=== PATIENT | female | born 1965 | race Caucasian/White ===

== ENCOUNTER 2016-10-24 18:31 | Emergency (ER) | payer SELFPAY ==
[~2016-10-24] VITALS: Ht 165.1 cm; Wt 62.6 kg
[~2016-10-24 18:31] MED LIST: FERR325C PO; LORA10CA PO; MEDR10TA PO
[2016-10-24] MEDS ORDERED: TETANUS,DIPTH,PERTUSS P/F (BOOSTRIX) 0.5 ML VIAL IM ONE (18:45)
[2016-10-24] MEDS ORDERED: LIDOCAINE/EPI 1%-1:100,000 (XYLOCAINE) 20ML INJ ONE (18:45)
[2016-10-24] MEDS ORDERED: AUGMENTIN 875 MG TAB (AMOXICILLIN/CLAVULANATE) PO SCH (18:45)
[2016-10-24] MEDS ORDERED: AMOX-358 PO (18:49)
--- NOTE | 2016-10-24 18:49 | ED EENT ---
History of Present Illness General Chief Complaint: Laceration Stated Complaint: R UPPER LIP INJ Source: patient Exam Limitations: no limitations History of Present Illness Time seen by provider: 18:47 Initial Comments To ER with a laceration to the right upper lip from her dog that bit her earlier today after she got too close to it. The dog is vaccinated against rabies. The patient is not sure about her on tetanus vaccination status. Timing/Duration: abrupt Severity: mild Associated Symptoms: denies symptoms Allergies and Home Medications Allergies Coded Allergies: No Known Drug Allergies (Unverified , 09/17/14) Home Medications Amoxicillin/Potassium Clav 1 Each Tablet, 1 EACH PO BID, #8 Prescribed by: FAMILIA HUDSON on 10/24/16 1849 Ferrous Sulfate 325 ( 65 )Mg Capsule.sa, 325 ( PO DAILY, #90 Prescribed by: JAMIA BARRAZA on 09/18/14 1240 Loratadine 10 Mg Capsule, 10 MG PO DAILY, (Reported) Medroxyprogesterone Acetate 10 Mg Tablet, 10 MG PO DAILY PRN for mynor, #36 Prescribed by: JAMIA BARRAZA on 09/18/14 1240 Review of Systems Constitutional: see HPI Eyes: No Symptoms Reported Ears: No Symptoms Reported Nose: no symptoms reported Mouth: see HPI Throat: no symptoms reported Respiratory: no symptoms reported Cardiovascular: no symptoms reported Musculoskeletal: no symptoms reported Past Krmrfig-Oorovx-Zyatcg Hx Patient Social History Alcohol Use: Occasionally Uses Recreational Drug Use: No Smoking Status: Never a Smoker Recent Foreign Travel: No Contact w/Someone Who Travel: No Seasonal Allergies Seasonal Allergies: Yes Surgeries HX Surgeries: Yes (OVARIAN CYSTS) Surgeries: Section Respiratory Hx Respiratory Disorders: No Cardiovascular Hx Cardiac Disorders: No Neurological Hx Neurological Disorders: No Genitourinary Hx Genitourinary Disorders: No Gastrointestinal Hx Gastrointestinal Disorders: No Musculoskeletal Hx Musculoskeletal Disorders: No Endocrine Hx Endocrine Disorders: No HEENT HX ENT Disorders: No Cancer Hx Cancer: No Psychosocial Hx Psychiatric Problems: No Integumentary HX Skin/Integumentary Disorder: Yes Skin/Integumentary Disorders: Eczema Blood Transfusions Hx Blood Disorders: No Adverse Reaction to a Blood Tr: No Family Medical History Significant Family History: No Pertinent Family Hx Physical Exam Vital Signs Vital Sign - Last 12Hours 10/24/16 18:35 Temp 99.5 Pulse 115 Resp 18 B/P (MAP) 116/68 General Appearance: WD/WN, no apparent distress Eyes: bilateral eye EOMI, bilateral eye PERRL, bilateral eye normal inspection Ears: bilateral ear TM normal, bilateral ear auricle normal, bilateral ear canal normal Nose: normal inspection, No active bleeding Mouth/Throat: normal mouth inspection, other (there is a vertically oriented 1 cm laceration to the lateral aspect of the right upper lip that is not all the way through but it is down to the subcutaneous tissues and does cross the vermilion border.) Neck: non-tender, full range of motion Respiratory: no respiratory distress, no accessory muscle use Gastrointestinal: non tender, soft Neurologic/Psychiatric: alert, normal mood/affect, oriented x 3 Skin: normal color, warm/dry Laceration Repair : Wound Location: Face Wound Length (cm): 1 Wound's Depth, Shape: sub Q Wound Explored: clean Anesthesia: Lidocaine w/ Epi Suture Size: 5-0 Number of Sutures: 4 Progress 1911-anesthetized with 1ml of 1% lidocaine with epi then irrigate with 30ml of chlorhexidine and saline. No foreign bodies seen. Closed with 4 sutures size 5- 0 ethilon simple interrupted. Progress/Results/Core Measures Results/Orders My Orders Orders - FAMILIA HUDSON APRN Dipht,Pertuss(Acell),Tet Adult (Boostrix (10/24/16 18:45) Lidocaine/Epi 1% 1:100,000 (Xylocaine /E (10/24/16 18:45) Amoxicillin/Clavulanate Tablet (Augmenti (10/24/16 18:45) Medications Given in ED Current Medications Medications Dose Ordered Sig/Mynor Route Start Time Stop Time Status Last Admin Dose Admin Diphtheria/ Tetanus/Acell Pertussis 0.5 ml ONCE ONCE IM 10/24/16 18:45 10/24/16 18:46 DC 10/24/16 18:55 0.5 ML Lidocaine/ Epinephrine 1 ml ONCE ONCE INJ 10/24/16 18:45 10/24/16 18:46 DC 10/24/16 18:55 1 ML Vital Signs/I&O Vital Sign - Last 12Hours 10/24/16 18:35 Temp 99.5 Pulse 115 Resp 18 B/P (MAP) 116/68 Departure Impression Impression: Primary Impression: Facial laceration Disposition: 01 HOME, SELF-CARE Condition: Stable Departure-Patient Inst. Decision time for Depature: 18:48 Referrals: NO,LOCAL PHYSICIAN (PCP/Family) Primary Care Physician Patient Instructions: Laceration Repair With Stitches (DC) Add. Discharge Instructions: 1. Return to the emergency room to have the stitches removed in 5 days 2. Antibiotics as directed 3. Return to ER for any concerns All discharge instructions reviewed with patient and/or family. Voiced understanding. Scripts Amoxicillin/Potassium Clav (Augmentin 875-125 Tablet) 1 Each Tablet 1 EACH PO BID, #8 TAB Prov: FAMILIA HUDSON APRN 10/24/16 Images Mouth/Nose 1 - FAMILIA HUDSON APRN Oct 24, 2016 18:49
[2016-10-24 19:18] VITALS: BP 0/0
--- OUTSIDE RECORDS SUMMARY | 2016-11-30 04:07 | XMS REPORT | Continuity of Care Document ---
Author Author [facility] Organization [facility] Address Unknown Phone Unavailable Allergies Active Description Code Type Severity Reaction Onset Reported/Identified Relationship to Patient Clinical Status Yes No Known Drug Allergies [id number] Drug Allergy Unknown N/ A 09/17/2014 Medications Problems Date Dx Coded Attending Type Code Diagnosis Diagnosed By 09/18/2014 Ot 285.9 09/18/2014 Ot 626.2 01/03/2015 Ot 626.8 10/27/2016 FAMILIA HUDSON APRN Ot S01.511A LACERATION WITHOUT FOREIGN BODY OF LIP , 10/27/2016 FAMILIA HUDSON APRN Ot W54.0XXA BITTEN BY DOG, INITIAL ENCOUNTER 10/27/2016 FAMILIA HUDSON APRN Ot Y92.[address] IN [facility] ( PRIVATE 10/27/2016 FAMILIA HUDSON APRN Ot Y99.8 OTHER EXTERNAL CAUSE STATUS 10/27/2016 FAMILIA HUDSON APRN Ot Z23 ENCOUNTER FOR IMMUNIZATION 10/29/2016 TIANNA ANGEL DO Ot S01.511D LACERATION WITHOUT FOREIGN BODY OF LIP, 10/30/2016 FAMILIA HUDSON APRN Ot S01.511A LACERATION WITHOUT FOREIGN BODY OF LIP , 10/30/2016 FAMILIA HUDSON APRN Ot W54.0XXA BITTEN BY DOG, INITIAL ENCOUNTER 10/30/2016 FAMILIA HUDSON APRN Ot Y92.[address] IN [facility] ( PRIVATE 10/30/2016 FAMILIA HUDSON APRN Ot Y99.8 OTHER EXTERNAL CAUSE STATUS 10/30/2016 FAMILIA HUDSON APRN Ot Z23 ENCOUNTER FOR IMMUNIZATION Procedures Results Encounters ACCT No. Visit Date/Time Discharge Status Pt. Type Provider Facility Loc./Unit Complaint [id number] 10/29/2016 10:45:00 2016 11:15:00 DIS Emergency TIANNA ANGEL DO [facility] ER SUTURE REMOVAL [id number] 10/24/2016 18:33:00 2016 19:18:00 DIS Outpatient FAMILIA HUDSON APRN [facility] ER R UPPER LIP INJ [id number] 04/18/2013 11:08:00 2012 23:59:59 CLS Outpatient [id number] 01/03/2015 11:22:00 Document Registration [id number] 09/17/2014 21:50:00 Document Registration
== END 2016-10-24 19:18 | disposition home or self-care (01) ==
LOC: EDUNIT# 18:31 → ER 18:33
DX: S01.511A Laceration without foreign body of lip, initial encounter (principal); Z23 Encounter for immunization; W54.0XXA Bitten by dog, initial encounter; Y92.009 Unspecified place in unspecified non-institutional (private) residence as the place of occurrence of the external cause; Y99.8 Other external cause status
CPT/HCPCS: 12011; 90471; 90715

== ENCOUNTER 2016-10-29 10:42 | Emergency (ER) | payer SELFPAY ==
[~2016-10-29] VITALS: Ht 165.1 cm; Wt 63.0 kg
[~2016-10-29 10:42] MED LIST changes: +AMOX-358 PO
[2016-10-29 11:15] VITALS: BP 156/88
== END 2016-10-29 11:15 | disposition home or self-care (01) ==
LOC: EDUNIT# 10:42 → ER 10:45
DX: S01.511D Laceration without foreign body of lip, subsequent encounter (principal)

== ENCOUNTER 2019-08-26 18:15 | Emergency (ER) | payer OTHER ==
[~2019-08-26] VITALS: Ht 167 cm; Wt 68.0 kg
--- NOTE | 2019-08-26 19:00 | ED Lower Extremity ---
General Chief Complaint: Lower Extremity Stated Complaint: FALL/R KNEE PAIN Nursing Triage Note: states thursday slipped and landed on knee. swelling. Nursing Sepsis Screen: No Definite Risk Source: patient Exam Limitations: no limitations History of Present Illness Date Seen by Provider: Aug 26, 2019 Time Seen by Provider: 18:56 Initial Comments To ER with right knee pain after a fall 3 days ago, she's been using ice pack to the knee since then. She does have some swelling and feeling of instability in the knee since then. She fell landing directly on a flexed knee. Onset: other Severity: moderate Pain/Injury Location: right knee Method of Injury: fell Modifying Factors: Worse With Movement Allergies and Home Medications Allergies Coded Allergies: No Known Drug Allergies (Unverified , 09/17/14) Home Medications Amoxicillin/Potassium Clav 1 Each Tablet, 1 EACH PO BID Prescribed by: FAMILIA HUDSON on 10/24/16 1849 Ferrous Sulfate 325 ( 65 )Mg Capsule.sa, 325 ( PO DAILY Prescribed by: JAMIA BARRAZA on 09/18/14 1240 Loratadine 10 Mg Capsule, 10 MG PO DAILY, (Reported) Medroxyprogesterone Acetate 10 Mg Tablet, 10 MG PO DAILY PRN for rochelle Prescribed by: JAMIA BARRAZA on 09/18/14 1240 Patient Home Medication List Home Medication List Reviewed: Yes Review of Systems Constitutional: see HPI EENTM: see HPI Respiratory: no symptoms reported Cardiovascular: no symptoms reported Genitourinary: no symptoms reported Musculoskeletal: see HPI Skin: no symptoms reported Psychiatric/Neurological: No Symptoms Reported Past Qwrusll-Bigjhu-Vcbbfg Hx Patient Social History Recent Foreign Travel: No Contact w/Someone Who Travel: No Recent Infectious Disease Expo: No Recent Hopitalizations: No Immunizations Up To Date Tetanus Booster (TDap): Unknown Seasonal Allergies Seasonal Allergies: Yes Past Medical History Section Eczema Adverse Reaction/Blood Tranf: No Family Medical History No Pertinent Family Hx Physical Exam Vital Signs Vital Signs - First Documented 08/26/19 18:34 Pulse 79 Resp 18 B/P (MAP) 154/96 (115) Pulse Ox 99 O2 Delivery Room Air Capillary Refill : Less Than 3 Seconds Height, Weight, BMI Height: 5'5.00" Weight: 139lbs. oz. 63.717399iy; 24.00 BMI Method:Stated General Appearance: WD/WN, no apparent distress Respiratory: no respiratory distress, no accessory muscle use Legs: bilateral leg non-tender, bilateral leg normal inspection, bilateral leg normal range of motion Knees: right knee joint effusion, right knee pain, right knee soft tissue tenderness, right knee swelling, right knee other (negative Gracy's test, no knee instability) Ankles: bilateral ankle non-tender, bilateral ankle normal inspection, bilateral ankle normal range of motion Feet: bilateral foot non-tender, bilateral foot normal inspection, bilateral foot normal range of motion Neurologic/Psychiatric: alert, normal mood/affect, oriented x 3 Skin: normal color, warm/dry Procedures/Interventions Suture Size: 5-0 Progress/Results/Core Measures Results/Orders My Orders Orders - FAMILIA HUDSON APRN Knee, Right, 3 Views (08/26/19 18:54) Vital Signs/I&O 08/26/19 18:34 Pulse 79 Resp 18 B/P (MAP) 154/96 (115) Pulse Ox 99 O2 Delivery Room Air Blood Pressure Mean: 115 Departure Communication (Admissions) Family Conversation NAME: SANTOS MAX [facility] REC#: [id number] PT STATUS: REG ER : 1965 PHYSICIAN: FAMILIA HUDSON APRN ADMIT DATE: 08/26/19/ER Draft Date of Exam:08/26/19 KNEE, RIGHT, 3 VIEWS INDICATION: Anterior knee pain after fall. FINDINGS: The alignment appears appropriate. There is no evidence to suggest a significant joint effusion. No cortical disruption to suggest fracture evident. Joint spaces appear preserved. There is no focal soft tissue abnormality. IMPRESSION: Negative radiographs of the right knee. Dictated on workstation # [id number] Dict: 08/26/191913 Trans: 08/26/191916 [id number] Interpreted by: NENA MCCARTHY MD Electronically signed by: Impression Primary Impression: Internal derangement of right knee Disposition: 01 HOME, SELF-CARE Condition: Stable Departure-Patient Inst. Decision time for Depature: 18:58 Referrals: SILVA AGUIRRE DO (PCP/Family) Primary Care Physician Patient Instructions: Knee Pain (DC) Add. Discharge Instructions: All discharge instructions reviewed with patient and/or family. Voiced understanding. FAMILIA HUDSON APRN Aug 26, 2019 19:00
--- NOTE | 2019-08-26 19:17 | Diagnostic Imaging Report ---
INDICATION: Anterior knee pain after fall. FINDINGS: The alignment appears appropriate. There is no evidence to suggest a significant joint effusion. No cortical disruption to suggest fracture evident. Joint spaces appear preserved. There is no focal soft tissue abnormality. IMPRESSION: Negative radiographs of the right knee. Dictated by: Dictated on workstation # [id number]
[2019-08-26 19:50] VITALS: BP 154/96
== END 2019-08-26 19:50 | disposition home or self-care (01) ==
LOC: EDUNIT# 18:15 → ER 18:16
DX: M23.91 Unspecified internal derangement of right knee (principal); W01.0XXA Fall on same level from slipping, tripping and stumbling without subsequent striking against object, initial encounter
CPT/HCPCS: 73562